=== PATIENT | male | born 1950 ===

== ENCOUNTER 2025-08-05 14:17 | Inpatient (IN) | payer MEDICARE ==
[~2025-08-05] VITALS: Ht 172.7 cm; Wt 100.7 kg
[~2025-08-05 14:17] MED LIST: ABILIFY15 MG PO; AMARYL1 MG PO; ARISTADA882 MG/3.2 IM; ASPIRIN CHEWABL81 M1 PO; BRIN20TA PO; CHEWABLE ASPIRI81 MG PO; CLOPIDOGREL75 MG PO; DIOVAN160 M1 PO; FLONASE0.05 MG/AC NS; FLUTICASON0.05 MG/AC NAS; Glimepiride1 MG PO; INVEGA3 MG PO; LATU120T PO; MAG-OX 400400 MG PO; MAGNESIUM OXID400 MG PO; MOM30 M1 PO; NITROSTAT0.4 MG SL; PLAVIX75 MG PO; PRAVASTATIN SOD20 MG PO; RANEXA500 M1 PO; RANEXA500 MG PO; RESTORIL15 MG PO; TOPROL XL25 MG PO; TYLENOL325 M2 PO; VALSARTAN160 MG PO; VITAMIN D50000 I2 PO; VITAMIN D50000 I3 PO; ZOCOR20 MG PO
[2025-08-06] MEDS ORDERED: LORazepam 1 MG TAB PO PRN (15:05)
[2025-08-06] MEDS ORDERED: hydrOXYzine 50 MG CAP PO PRN (15:05)
[2025-08-06] MEDS ORDERED: hydrOXYzine hydrochloride 50 MG/ML VIAL IM PRN (15:05)
[2025-08-06] MEDS ORDERED: DULOXETINE HCL30 MG PO (15:21)
[2025-08-06] MEDS ORDERED: GLIMEPIRIDE3 MG PO (15:25)
[2025-08-06] MEDS ORDERED: LOSARTAN-HCTZ1 EAC1 PO (15:26)
[2025-08-06] MEDS ORDERED: APRESOLINE25 MG PO (15:26)
[2025-08-06] MEDS ORDERED: MELOXICAM15 MG PO (15:28)
[2025-08-06] MEDS ORDERED: RIVASTIGMINE T1.5 M1 PO (15:31)
[2025-08-06 17:12] VITALS: BP 144/86
[2025-08-06 20:00] VITALS: BP 115/85
[2025-08-06] MEDS ORDERED: Mirtazapine 15 MG TAB PO SCH (21:00)
[2025-08-06] MEDS ORDERED: ACETAMINOPHEN 325 MG TAB PO PRN (23:40)
[2025-08-06] MEDS ORDERED: NITROGLYCERIN 0.4 MG BOT SL PRN (23:45)
[2025-08-07 07:15] LABS: BASO # 0.1 10*3/uL (0.0-0.1); BASO % 0.5 % (0.0-1.0); EOS # 0.2 10*3/uL (0.0-0.4); EOS % 1.7 % (1.0-4.0); MEAN CELL VOLUME 94.8 fl (80.0-94.0); MEAN CORPUSCULAR HGB 31.3 pg (27.0-31.0); MEAN PLATELET VOLUME 10.4 fl (9.6-12.3); MONO # 0.9 10*3/uL (0.1-1.0); MONO % 7.9 % (3.0-9.0); NEUT # 7.2 10*3/uL (2.3-7.9); NEUT % 62.2 % (47.0-73.0); NUCLEATED RED BLOOD CELL 0.0 % (0.0-0.0); NUCLEATED RED BLOOD CELL 0.0 10*3/uL (0.0-0.0); PLATELET COUNT AUTOMATED 202 10*3/uL (130-400); RED CELL DISTRI WIDTH 12.9 % (0-14.5)
[2025-08-07 07:35] LABS: BUN 18 mg/dl (9-23); LDL CHOLESTEROL 129 mg/dL (9-159); SGPT/ALT 11 U/L (5-49)
[2025-08-07 07:49] LABS: VITAMIN D, 25-HYDROXY 27.7 ng/mL (30-100)
[2025-08-07 08:00] VITALS: BP 122/92
[2025-08-07] MEDS ORDERED: Ranolazine 500 MG TAB ER PO SCH (09:00)
[2025-08-07] MEDS ORDERED: ASPIRIN, CHEWABLE 81 MG TAB PO SCH (09:00)
[2025-08-07] MEDS ORDERED: Clopidogrel Hydrogen Sulfate 75 MG TAB PO SCH (10:00)
[2025-08-07] MEDS ORDERED: hydroCHLOROthiazide 25 MG TAB PO SCH (10:00)
[2025-08-07] MEDS ORDERED: METOPROLOL SUCCINATE XR 25 MG TAB PO SCH (10:00)
[2025-08-07] MEDS ORDERED: GLIMEPIRIDE 2 MG TAB PO SCH (10:00)
[2025-08-07] MEDS ORDERED: Meloxicam 15 MG TAB PO SCH (10:00)
[2025-08-07] MEDS ORDERED: hydrALAZINE hydrochloride 25 MG TAB PO SCH (10:00)
[2025-08-07 19:59] VITALS: BP 126/90
[2025-08-07] MEDS ORDERED: ATORVASTATIN CALCIUM 10 MG TAB PO SCH (21:00)
[2025-08-08 08:00] VITALS: BP 134/85
[2025-08-08] MEDS ORDERED: Cholecalciferol 2,000 UNIT TABLET (50 MCG) PO SCH (09:00)
[2025-08-08 20:00] VITALS: BP 123/67
[2025-08-08] MEDS ORDERED: Memantine Hydrochloride 5 MG TAB PO SCH (21:00)
[2025-08-09 08:00] VITALS: BP 116/62
[2025-08-09 20:00] VITALS: BP 87/53
[2025-08-09] MEDS ORDERED: Memantine Hydrochloride 5 MG TAB PO SCH (21:00)
[2025-08-10 08:31] VITALS: BP 123/57
[2025-08-10 20:26] VITALS: BP 112/54
[2025-08-11 08:00] VITALS: BP 110/57
[2025-08-11 14:10] LABS: BASO # 0.1 10*3/uL (0.0-0.1); BASO % 0.7 % (0.0-1.0); EOS # 0.2 10*3/uL (0.0-0.4); EOS % 1.8 % (1.0-4.0); MEAN CELL VOLUME 98.1 fl (80.0-94.0); MEAN CORPUSCULAR HGB 31.6 pg (27.0-31.0); MEAN PLATELET VOLUME 10.6 fl (9.6-12.3); MONO # 1.0 10*3/uL (0.1-1.0); MONO % 8.7 % (3.0-9.0); NEUT # 7.6 10*3/uL (2.3-7.9); NEUT % 70.0 % (47.0-73.0); NUCLEATED RED BLOOD CELL 0.0 % (0.0-0.0); NUCLEATED RED BLOOD CELL 0.0 10*3/uL (0.0-0.0); PLATELET COUNT AUTOMATED 180 10*3/uL (130-400); RED CELL DISTRI WIDTH 12.5 % (0-14.5)
[2025-08-11 20:24] VITALS: BP 134/89
[2025-08-12 09:24] VITALS: BP 148/77
[2025-08-12] MEDS ORDERED: RIVASTIGMINE TAR3 M1 PO (09:48)
[2025-08-12] MEDS ORDERED: MEMANTINE HCL10 MG PO (09:48)
[2025-08-12] MEDS ORDERED: MIRTAZAPINE15 M2 PO (09:48)
== END 2025-08-12 12:42 | DRG 885 ==
LOC: 3N
PROVIDERS: ADMIT Psychiatry & Neurology Psychiatry; ATTEND Psychiatry & Neurology Psychiatry
PROC: GZHZZZZ Group Psychotherapy (ICD-10-PCS; principal; 2025-08-07)
PROC: GZ56ZZZ Individual Psychotherapy, Supportive (ICD-10-PCS; 2025-08-07)
DX: F25.9 Schizoaffective disorder, unspecified (principal); R45.851 Suicidal ideations; F02.83 Dementia in other diseases classified elsewhere, unspecified severity, with mood disturbance; F02.818 Dementia in other diseases classified elsewhere, unspecified severity, with other behavioral disturbance; F02.82 Dementia in other diseases classified elsewhere, unspecified severity, with psychotic disturbance; F33.2 Major depressive disorder, recurrent severe without psychotic features; I25.10 Atherosclerotic heart disease of native coronary artery without angina pectoris; I10 Essential (primary) hypertension; G30.9 Alzheimer's disease, unspecified; G89.29 Other chronic pain; E78.2 Mixed hyperlipidemia; M54.50 Low back pain, unspecified; F17.210 Nicotine dependence, cigarettes, uncomplicated; E11.9 Type 2 diabetes mellitus without complications; Z95.5 Presence of coronary angioplasty implant and graft; Z95.0 Presence of cardiac pacemaker; Z82.49 Family history of ischemic heart disease and other diseases of the circulatory system; Z79.899 Other long term (current) drug therapy; Z79.01 Long term (current) use of anticoagulants; Z79.2 Long term (current) use of antibiotics; Z79.82 Long term (current) use of aspirin

== ENCOUNTER 2025-08-06 14:16 | Emergency (ER) | payer MEDICARE, OTHER ==
[~2025-08-06] VITALS: Ht 172.7 cm; Wt 101.2 kg
[2025-08-06 15:11] LABS: BASO # 0.1 10*3/uL (0.0-0.1); BASO % 0.6 % (0.0-1.0); EOS # 0.2 10*3/uL (0.0-0.4); EOS % 1.4 % (1.0-4.0); MEAN CELL VOLUME 96.4 fl (80.0-94.0); MEAN CORPUSCULAR HGB 31.3 pg (27.0-31.0); MEAN PLATELET VOLUME 10.2 fl (9.6-12.3); MONO # 0.9 10*3/uL (0.1-1.0); MONO % 8.1 % (3.0-9.0); NEUT # 7.7 10*3/uL (2.3-7.9); NEUT % 71.2 % (47.0-73.0); NUCLEATED RED BLOOD CELL 0.0 % (0.0-0.0); NUCLEATED RED BLOOD CELL 0.0 10*3/uL (0.0-0.0); PLATELET COUNT AUTOMATED 189 10*3/uL (130-400); RED CELL DISTRI WIDTH 12.8 % (0-14.5)
[2025-08-06] MEDS ORDERED: DULOXETINE HCL30 MG PO (15:21)
[2025-08-06] MEDS ORDERED: GLIMEPIRIDE3 MG PO (15:25)
[2025-08-06] MEDS ORDERED: APRESOLINE25 MG PO (15:26)
[2025-08-06] MEDS ORDERED: LOSARTAN-HCTZ1 EAC1 PO (15:26)
[2025-08-06] MEDS ORDERED: MELOXICAM15 MG PO (15:28)
[2025-08-06] MEDS ORDERED: RIVASTIGMINE T1.5 M1 PO (15:31)
[2025-08-06 15:37] LABS: BUN 20 mg/dl (9-23); SGPT/ALT 11 U/L (5-49)
[2025-08-06 15:52] LABS: ETHYL ALCOHOL < 3.0 mg/dl (<3)
[2025-08-06 15:58] LABS: BILIRUBIN Negative (Negative); BLOOD Negative (Negative); CLARITY Clear (Clear); COLOR Yellow (Yellow); KETONE Trace (Negative); LEUKO ESTERASE Trace (Negative); NITRITE Negative (Negative); PH 6.0 (4.5-8.0); SPECIFIC GRAVITY 1.025 (1.001-1.030); UROBILINOGEN 1.0 E.U./dl (0.0-1.0)
[2025-08-06 16:05] LABS: URINE AMPHETAMINES Negative (1000ng/ml); URINE BARBITURATES Negative (200ng/ml); URINE BENZODIAZEPINES Negative (200ng/ml); URINE CANNABINOIDS (THC) Negative (50ng/ml); URINE COCAINE Negative (300ng/ml); URINE METHADONE Negative (300ng/ml); URINE OPIATES Negative (300ng/ml); URINE PHENCYCLIDINE Negative (25ng/ml)
[2025-08-06 16:06] LABS: BACTERIA 1+; RBC 0-2 rbc/hpf (0-2)
== END 2025-08-06 16:57 | disposition home or self-care (01) ==
LOC: ED 14:16
PROVIDERS: Emergency Medicine
DX: F32.9 Major depressive disorder, single episode, unspecified (principal); I25.10 Atherosclerotic heart disease of native coronary artery without angina pectoris; J44.9 Chronic obstructive pulmonary disease, unspecified; I10 Essential (primary) hypertension; M19.90 Unspecified osteoarthritis, unspecified site; E78.5 Hyperlipidemia, unspecified; E78.00 Pure hypercholesterolemia, unspecified; Z98.890 Other specified postprocedural states; Z95.0 Presence of cardiac pacemaker